=== PATIENT | female | born 1975 | race African-American/Black ===

== ENCOUNTER 2019-07-11 16:39 | Emergency (ER) | payer MEDICARE, OTHER ==
[~2019-07-11] VITALS: Ht 152.4 cm; Wt 70.8 kg
[~2019-07-11 16:39] MED LIST: ASPIRIN EC81 M1 PO; CIPROFLOXACIN500 M3 PO; CLONIDINE HCL0.2 M2 PO; CLONIDINE0.1 PO; FISH OIL 1,001000 M1 PO; IRON SUCROSE PO; IRON159 MG; IRON325 PO; LISINOPRIL20 MG; LISINOPRIL20 MG PO; LOPRESSOR100 MG PO; METOPROLOL PO; RENA VIT PO; RENA-VITE; RENAGEL PO; TRANDATE 200 M200 M1; XANAX 0.5 MG0.5 M1 PO; ZEMPLAR5 MCG/1 ML; ZOFRAN 4 MG ORAL4 MG PO; ZOLOFT 50 MG TA50 M1 PO
[2019-07-11] MEDS ORDERED: ASA81BEC PO (16:51)
[2019-07-11] MEDS ORDERED: PROGRAF1 M1 PO (16:53)
[2019-07-11] MEDS ORDERED: CLONIDINE HCL0.3 M3 PO (16:53)
[2019-07-11] MEDS ORDERED: NORVASC 2.5 MG2.5 M1 PO (16:54)
[2019-07-11] MEDS ORDERED: LIPITOR10 MG PO (16:54)
[2019-07-11] MEDS ORDERED: TOPROL XL50 MG PO (16:55)
[2019-07-11] MEDS ORDERED: MYFORTIC360 MG PO (16:56)
[2019-07-11] MEDS ORDERED: FOLIC ACID1 MG PO (16:56)
[2019-07-11 17:15] LABS: URINE BILIRUBIN NEGATIVE (Negative); URINE BLOOD 1+ (Negative); URINE CLARITY CLEAR; URINE COLOR YELLOW; URINE GLUCOSE-RANDOM NEGATIVE (Negative); URINE KETONES NEGATIVE (Negative); URINE LEUKOCYTES-REFLEX NEGATIVE (Negative); URINE NITRITE-REFLEX NEGATIVE (Negative); URINE PROTEIN NEGATIVE (Negative); URINE UROBILINOGEN 0.2 E.U./dl (0.2-1.0)
[2019-07-11 17:30] LABS: MUCUS None Seen strn/LPF (None Seen); SQUAMOUS >10 Many /LPF (0-3)
[2019-07-11 17:31] LABS: CASTS None Seen /LPF (None Seen); URINE RBC 0-2 Rare /HPF (0-2); URINE WBC-REFLEX 0-5 Rare /HPF (0-5)
[2019-07-11 17:32] LABS: CRYSTALS None Seen /LPF (None Seen)
[2019-07-11 18:22] LABS: ABSOLUTE MONOCYTES 0.7 thou/uL (0.0-1.2); ABSOLUTE NEUTROPHILS 8.4 thou/uL (1.6-8.1); BASOPHILS 0.4 %; EOSINOPHILS 0.2 %; HEMATOCRIT 37.8 % (37.0-47.0); HEMOGLOBIN 13.1 gm/dL (12.0-15.0); LYMPHOCYTES 9.8 %; MCH 32.2 pg (26.0-34.0); MCHC 34.5 g/dL (28.0-37.0); MCV 93.2 fL (80.0-100.0); MONOCYTES 6.6 %; MPV 7.7 fl. (7.2-11.1); NUCLEATED RBCS 0 /100WBC; PLATELET COUNT* 307 thou/uL (150-400); RBC 4.06 mil/uL (4.20-5.00); RDW-CV 12.7 % (10.5-14.5); WBC 10.1 thou/uL (4.0-11.0)
[2019-07-11 18:37] LABS: APTT 30.1 Seconds (25.0-31.3); INR 1.1; PROTIME 11.3 Seconds (9.20-11.50)
[2019-07-11 18:39] LABS: CALCIUM 10.1 mg/dL (8.5-10.1); CREATININE 0.9 mg/dL (0.6-1.3); POTASSIUM 4.1 mmol/L (3.5-5.1)
[2019-07-11 18:51] LABS: ALBUMIN 3.9 g/dL (3.4-5.0); CK-MB MASS 0.6 ng/mL (<0.5-3.6); MAGNESIUM 1.3 mg/dL (1.8-2.4); TOTAL BILIRUBIN 0.8 mg/dL (<0.1-1.0); TOTAL PROTEIN 7.9 g/dL (6.4-8.2)
[2019-07-11 19:15] VITALS: BP 168/103
--- NOTE | 2019-07-12 15:01 | EKG ---
[place] [address] ELECTROCARDIOGRAM REPORT Name: EARLENE LAKE Room: [facility]#: [id number] Admission: 07/11/19 Attend Phys: Discharge: 07/11/19 Date of : 75 Report #: [id number] THIS REPORT FOR: //name// [facility] ED Test Date: 2019-07-11 Test Time: 17:57:48 Pat Name: EARLENE LAKE Department: Room: Gender: F [employer]: : 1975 Requested By: Judd Rendon Order Number: [id number] MD: Federico Mejia Measurements Intervals [place] Rate: 88 P: 61 TN: 171 QRS: -8 QRSD: 94 T: 58 QT: 368 QTc: 446 Interpretive Statements Sinus rhythm Left atrial enlargement RSR' in V1 or V2, right VCD or RVH Probable LVH with secondary repol abnrm Baseline wander in lead(s) V1,V2,V3,V4,V5,V6 Compared to ECG 04/17/2013 11:38:06 Right ventricular hypertrophy now possible RSR' in V1 or V2 now present Sinus tachycardia no longer present Electronically Signed On 07-12-2019 15:01:00 CDT by Federico Mejia [email or web address] <ELECTRONICALLY SIGNED> By: Federico Mejia MD, FACC 07/12/19 1501 [id number] Federico Mejia MD, [facility] /EPI
== END 2019-07-11 19:15 | disposition home or self-care (01) ==
LOC: M.ERS 16:39
PROVIDERS: Family Medicine
DX: M54.5 Low back pain (principal); I13.0 Hypertensive heart and chronic kidney disease with heart failure and stage 1 through stage 4 chronic kidney disease, or unspecified chronic kidney disease; N18.9 Chronic kidney disease, unspecified; I50.9 Heart failure, unspecified; Z99.2 Dependence on renal dialysis; Z88.5 Allergy status to narcotic agent